=== PATIENT | male | born 1995 | race Caucasian/White ===

== ENCOUNTER 2024-11-23 22:26 | Emergency (ER) | payer MEDICAID, OTHER ==
[~2024-11-23] VITALS: Ht 165.1 cm; Wt 54.5 kg
[2024-11-23 22:35] VITALS: BP 103/59; PULSE 100; RESP 16; TEMP 98.8; O2SAT 99
--- NOTE | 2024-11-23 22:55 | ED.PDOC ---
General HPI Comments Pt RENE from private residence with C/O broken suprapubic catheter collection bag. Per pt he was sitting in his wheelchair and collection bag got caught in wheelchair wheel so he "ripped it off." Pt noted to have leaking and redness around suprapubic insertion site. Pt denies any pain. PMH- paraplegia Time Seen by MD: 22:42 Reviewed notes: Nurses Notes, Medications, Allergies Allergies: Coded Allergies: NO KNOWN ALLERGIES (Unverified , 11/23/24) Information Source: Patient Past Medical History Past Medical History (Other): Paraplegia Surgical History: Denies all surgeries Surgical History (Other): Suprapubic catheter Family History Family History: Reviewed,noncontributory to illness Social History Smoker: Non-Smoker Alcohol: Denies ETOH Use Drugs: Denies Drug Use Constitutional: denies: chills, diaphoresis, fatigue, fever, malaise, sweats, weakness, others EENTM: denies: blurred vision, double vision, ear bleeding, ear discharge, ear drainage, ear pain, ear ringing, eye pain, eye redness, hearing loss, mouth pain, mouth swelling, nasal discharge, nose bleeding, nose congestion, nose pain, photophobia, tearing, throat pain, throat swelling, voice changes, others Respiratory: denies: cough, hemoptysis, orthopnea, SOB at rest, shortness of breath, SOB with excertion, stridor, wheezing, others Cardiovascular: denies: chest pain, dizzy spells, diaphoresis, Dyspnea on exertion, edema, irregular heart beat, left arm pain, lightheadedness, palpitations, PND, syncope, others Gastrointestinal: denies: abdomen distended, abdominal pain, blood streaked bowels, constipated, diarrhea, dysphagia, difficulty swallowing, hematemesis, melena, nausea, poor appetite, poor fluid intake, rectal bleeding, rectal pain, vomiting, others Genitourinary: denies: burning, dysuria, flank pain, frequency, hematuria, incontinence, penile discharge, penile sore, pain, testicle pain, testicle swelling, urgency, others Neurological: denies: dizziness, fainting, headache, left sided numbness, left sided weakness, numbness, paresthesia, pre-existing deficit, right sided numbness, right sided weakness, seizure, speech problems, tingling, tremors, weakness, others Musculoskeletal: denies: back pain, gout, joint pain, joint swelling, muscle pain, muscle stiffness, neck pain, others Integumetry: denies: bruises, change in color, change in hair/nails, dryness, laceration, lesions, lumps, rash, wounds, others Allergic/Immunocompromised: denies: Difficulty Healing, Frequent Infections, Hives, Itching, others Hematologic/Lymphatic: denies: anemia, blood clots, easy bleeding, easy bruising, swollen glands, others Endocrine: denies: excessive hunger, excessive sweating, excessive thirst, excessive urination, flushing, intolerance to cold, intolerance to heat, unexplained weight gain, unexplained weight loss, others Psychiatric: denies: anxiety, bipolar disorder, depression, hopeless, panic disorder, schizophrenia, sleepless, suicidal, others Physical Exam General Appearance: No Apparent Distress, Normal HEENT: Pharynx Normal Neck: Full Range of Motion, Non-Tender Respiratory: Lungs Clear, No Respiratory Distress, Normal Breath Sounds Cardiovascular: No Edema, No JVD, No Murmur, No Gallop, Normal Peripheral Pulses, Regular Rate/Rhythm Breast Exam: Deferred Gastrointestinal: No Organomegaly, Non Tender, No Pulsatile Mass, Normal Bowel Sounds, Soft Genitalia: Deferred Pelvic: Other (Suprapubic catheter intact bag is missing) Rectal: Deferred Extremities: Normal capillary refill, Normal inspection, Normal range of motion, Non-tender, No pedal edema Musculoskeletal : Apperance: Normal Neurologic: Alert, rd lab technician II-XII nml as Tested, No Motor Deficits, Normal Affect, Normal Mood, No Sensory Deficits Cerebellar Function: Normal Reflexes: Normal Skin: Dry, Normal Color, Warm Lymphatic: No Adenopathy Was a procedure done? Was a procedure done?: No Differential Diagnosis Kidney stone (Female): N/A Urinary Problem (Male): Bladder Outlet, Bladder Obstruction, Urinary Retention X-Ray, Labs, Meds, VS Vital Signs Date Time Temp Pulse Resp B/P (MAP) Pulse Ox O2 Delivery O2 Flow Rate FiO2 11/23/24 22:35 98.8 100 16 103/59 (74) 99 98.8 X-Ray, Labs, Meds, VS Comment Patient eloped lobby check x3 outside checked nurse's station in the front was checked no answer Time of 1ST Reevaluation: 22:54 Reevaluation 1ST: Unchanged Time of 2ND Reevaluation: 23:56 Reevaluation 2ND: Unchanged Patient Education/Counseling: Diagnosis, Treatment, Prognosis, Need For Follow Up Family Education/Counseling: No Family Present SEPSIS Sepsis Screen Vital Signs Date Time Temp Pulse Resp B/P (MAP) Pulse Ox O2 Delivery O2 Flow Rate FiO2 11/23/24 22:35 98.8 100 16 103/59 (74) 99 98.8 Departure 1 Departure Time of Disposition: 23:56 Impression: Primary Impression: Suprapubic catheter dysfunction Qualified Codes: T83.010A - Breakdown (mechanical) of cystostomy catheter, initial encounter Disposition: 07 LEFT AWOL/ELOPED Condition: Stable Critical Care Note Critical Care Time?: No Stability Stability form required: DEEPTI Rocha Nov 23, 2024 22:55
== END 2024-11-23 23:56 | disposition left against medical advice (07) ==
LOC: EDBD 22:26 → ER 22:26
DX: T83.010A Breakdown (mechanical) of cystostomy catheter, initial encounter (principal); G82.20 Paraplegia, unspecified; Y92.89 Other specified places as the place of occurrence of the external cause

== ENCOUNTER 2024-11-24 11:03 | Inpatient (IN) | payer MEDICAID ==
[~2024-11-24] VITALS: Ht 180.3 cm; Wt 54.5 kg
[2024-11-24 12:23] LABS: Hematocrit 34.4 % (41.0-53.0); Hemoglobin 11.1 g/dL (13.5-17.5); Mean Corpuscular Hemoglobin 23.7 pg (28.0-32.0); Mean Corpuscular Volume 73.2 fL (80.0-100.0); Nucleated Red Blood Cells % 0.1 %
[2024-11-24 12:40] LABS: Albumin 4.3 g/dL (3.2-4.8); Alkaline Phosphatase 116 U/L (46-116); Anion Gap 9 (5-15); BUN/Creatinine Ratio 12.0 (10.0-20.0); Calcium 9.5 mg/dL (8.7-10.4); Carbon Dioxide 25 mmol/L (20-31); Chloride 103 mmol/L (98-107); Glucose 84 mg/dL (74-106); Potassium 3.8 mmol/L (3.5-5.1); Sodium 137 mmol/L (136-145); Total Protein 7.9 g/dL (5.7-8.2)
[2024-11-24 12:41] LABS: Bilirubin, Total 0.6 mg/dL (0.2-1.0)
[2024-11-24 12:43] LABS: Blood Urea Nitrogen 6 mg/dL (9-23)
[2024-11-24 12:44] LABS: Alanine Aminotransferase 9 U/L (7-40)
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
[2024-11-24 16:53] VITALS: BP 107/63; PULSE 122; RESP 18; TEMP 101.1; O2SAT 97
[2024-11-24] MEDS ORDERED: LACTATED RINGER'S 2,250 ML IV ONE (17:15)
[2024-11-24] MEDS ORDERED: VANCOMYCIN 1GM/200ML PM 200 ML IV ONE (17:15)
[2024-11-24] MEDS ORDERED: ACETAMINOPHEN 325 MG TAB PO PRN (17:30)
[2024-11-24] MEDS ORDERED: DOCUSATE SOD 100 MG CAP PO PRN (17:30)
[2024-11-24] MEDS ORDERED: VANCOMYCIN PER PHARMACY 0 MG IV SCH (17:30)
[2024-11-24] MEDS ORDERED: ONDANSETRON HCL 4 MG/2 ML VIAL IV PRN (17:30)
[2024-11-24] MEDS ORDERED: HYDROcodone-ACET 5/325MG TAB PO PRN (17:30)
[2024-11-24] MEDS ORDERED: CEFEPIME 1GM/ 50ML 50 ML IV ONE (17:30)
[2024-11-24] MEDS ORDERED: HYDROmorphone HCL 2 MG/ML VL/or syr IV PRN (17:30)
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
[2024-11-24 18:46] LABS: Urine Budding Yeast MODERATE /hpf (None Seen); Urine Protein, UAD TRACE (Negative)
[2024-11-24] MEDS ORDERED: SODIUM CHLOR 0.9% PF (SALINE LOCK) 10ML VIAL/SYR IV SCH (22:00)
[2024-11-25] MEDS ORDERED: CEFEPIME 1GM/ 50ML 50 ML IV SCH ×2 (02:00)
[2024-11-25] MEDS ORDERED: ENOXAPARIN SOD 40 MG/0.4 ML SYRINGE SC SCH (10:00)
== END 2024-11-24 17:39 | disposition left against medical advice (07) | DRG 720 ==
LOC: ER 11:03 → OVERFLOW 17:29
PROVIDERS: ADMIT Internal Medicine; ATTEND Internal Medicine
DX: A41.9 Sepsis, unspecified organism (principal); G82.20 Paraplegia, unspecified; N39.0 Urinary tract infection, site not specified; T83.098A Other mechanical complication of other urinary catheter, initial encounter; Z53.29 Procedure and treatment not carried out because of patient's decision for other reasons; Y84.8 Other medical procedures as the cause of abnormal reaction of the patient, or of later complication, without mention of misadventure at the time of the procedure; Y92.89 Other specified places as the place of occurrence of the external cause; Z79.899 Other long term (current) drug therapy
CPT/HCPCS: 36415; 80053; 81001; 85025; 87086; G0378

== ENCOUNTER 2024-11-24 18:10 | Emergency (ER) | payer MEDICAID | END 2024-11-24 20:15 | disposition left against medical advice (07) | LOC: ER 18:10 | DX: Z00.8 Encounter for other general examination (principal); Z53.21 Procedure and treatment not carried out due to patient leaving prior to being seen by health care provider ==

== ENCOUNTER 2024-12-03 14:10 | Emergency (ER) | payer MEDICAID ==
[~2024-12-03] VITALS: Ht 180.3 cm; Wt 59.0 kg
[2024-12-03 14:35] VITALS: BP 114/76; PULSE 110; RESP 16; TEMP 97.8; O2SAT 99
--- NOTE | 2024-12-03 14:37 | ED.PDOC ---
History of Present Illness HPI Comments 29 y/o M, with PMHx of schizophrenia and polysubstance abuse, RENE, presents to the ED for CC of wellness check. EMS reports, patient is coming from assisted care facility where he left d/t no loner wanting to be there. EMS relays, assisted care facility can no longer care for patient d/t habitually leaving the facility to seek illicit substances. Patient was seen yesterday (12/02/24) at [facility] and left AMA. At this time patient states he needs a new facility to stay at because the previous one is no longer safe additionally he would also like a Damon Catheter. No other symptoms or modifiers obtainable at this time. Time Seen by MD: 14:20 Primary Care Provider: n/a Reviewed Notes: Nurses Notes, Accounts Payable Supervisor Notes, Medications, Allergies Allergies: Coded Allergies: NO KNOWN ALLERGIES (Unverified , 11/23/24) Information Source: Patient, Emergency Med Personnel Mode of Arrival: EMS Severity: Moderate Timing: Minutes Duration: Since onset Prehospital treatment: None Past Medical History PAST MEDICAL HISTORY: Denies Surgical History: Denies all surgeries Family History Family History: Unknown Social History Smoker: Unknown Alcohol: Unknown Lives In: Assisted Care Constitutional: denies: chills, diaphoresis, fatigue, fever, malaise, sweats, weakness, others EENTM: denies: blurred vision, double vision, ear bleeding, ear discharge, ear drainage, ear pain, ear ringing, eye pain, eye redness, hearing loss, mouth pain, mouth swelling, nasal discharge, nose bleeding, nose congestion, nose pain, photophobia, tearing, throat pain, throat swelling, voice changes, others Respiratory: denies: cough, hemoptysis, orthopnea, SOB at rest, shortness of breath, SOB with excertion, stridor, wheezing, others Cardiovascular: denies: chest pain, dizzy spells, diaphoresis, Dyspnea on exertion, edema, irregular heart beat, left arm pain, lightheadedness, palpitations, PND, syncope, others Gastrointestinal: denies: abdomen distended, abdominal pain, blood streaked bowels, constipated, diarrhea, dysphagia, difficulty swallowing, hematemesis, melena, nausea, poor appetite, poor fluid intake, rectal bleeding, rectal pain, vomiting, others Genitourinary: denies: burning, dysuria, flank pain, frequency, hematuria, incontinence, penile discharge, penile sore, pain, testicle pain, testicle swelling, urgency, others Neurological: denies: dizziness, fainting, headache, left sided numbness, left sided weakness, numbness, paresthesia, pre-existing deficit, right sided numbness, right sided weakness, seizure, speech problems, tingling, tremors, weakness, others Musculoskeletal: denies: back pain, gout, joint pain, joint swelling, muscle pain, muscle stiffness, neck pain, others Integumetry: denies: bruises, change in color, change in hair/nails, dryness, laceration, lesions, lumps, rash, wounds, others Allergic/Immunocompromised: denies: Difficulty Healing, Frequent Infections, Hives, Itching, others Hematologic/Lymphatic: denies: anemia, blood clots, easy bleeding, easy bruising, swollen glands, others Endocrine: denies: excessive hunger, excessive sweating, excessive thirst, excessive urination, flushing, intolerance to cold, intolerance to heat, unexplained weight gain, unexplained weight loss, others Psychiatric: denies: anxiety, bipolar disorder, depression, hopeless, panic disorder, schizophrenia, sleepless, suicidal, others All Other Systems: Reviewed and Negative Physical Exam General Appearance: Moderate Distress HEENT: Normal ENT Inspection, Pharynx Normal, TMs Normal Neck: Full Range of Motion, Non-Tender, Normal, Normal Inspection Respiratory: Chest Non-Tender, Lungs Clear, No Accessory Muscle Use, No Respiratory Distress, Normal Breath Sounds Cardiovascular: No Edema, No JVD, No Murmur, No Gallop, Normal Peripheral Pulses, Regular Rate/Rhythm Breast Exam: Deferred Gastrointestinal: No Organomegaly, Non Tender, No Pulsatile Mass, Normal Bowel Sounds, Soft Genitalia: Deferred Pelvic: Deferred Rectal: Deferred Extremities: Other (Paraplegic) Musculoskeletal : Apperance: Normal Neurologic: Alert Cerebellar Function: NOT DONE Reflexes: NOT DONE Skin: Normal Color Peripheral Pulses: 3+ Radial (R), 3+ Radial (L) Lymphatic: No Adenopathy Was a procedure done? Was a procedure done?: No Differential Dx Considerations may include: Anxiety X-Ray, Labs, Meds, VS Vital Signs Date Time Temp Pulse Resp B/P (MAP) Pulse Ox O2 Delivery O2 Flow Rate FiO2 12/03/24 14:35 97.8 110 16 114/76 (89) 99 97.8 Patient alert. No sign of distress. Vitals stable. Answering questions. Saturation pristine on room air. Denies suicidal homicidal ideation. He is comfortable. court worker consultation. Medically cleared. Continue monitoring. Time of 1ST Reevaluation: 14:50 Reevaluation 1ST: Improved Patient Education/Counseling: Diagnosis, Treatment Family Education/Counseling: No Family Present SEPSIS Sepsis Screen Physician Orders * General Ledger Accountant Consult (12/03/24 ) Vital Signs Date Time Temp Pulse Resp B/P (MAP) Pulse Ox O2 Delivery O2 Flow Rate FiO2 12/03/24 14:35 97.8 110 16 114/76 (89) 99 97.8 Departure 1 Departure Time of Disposition: 14:50 Impression: Primary Impression: Encounter for Damon catheter replacement Disposition: 30 STILL A PATIENT Condition: Good Discharged With: Self Critical Care Note Critical Care Time?: No Stability Stability form required: No Heart Score Heart Score: Heart Score Response (Comments) Value History N/A 0 EKG N/A 0 Age N/A 0 Risk Factors N/A 0 Troponin N/A 0 Total 0 I personally scribed for DENNIS WALL MD ([email or web address]) on 12/03/24 at 14:37. Electronically submitted by Kaylie Chang ([email or web address]). DENNIS WALL MD Dec 03, 2024 14:37
== END 2024-12-04 04:25 | disposition left against medical advice (07) ==
LOC: ER 14:10 → EDUNIT# 14:10 → EDBD 14:10 → ER 12-04 03:54
DX: Z46.6 Encounter for fitting and adjustment of urinary device (principal); F20.9 Schizophrenia, unspecified
CPT/HCPCS: 51702